=== PATIENT | female | born 1990 | race Asian ===

== ENCOUNTER 2017-06-03 23:00 | Emergency (ER) | payer OTHER ==
[~2017-06-03] VITALS: Ht 160 cm; Wt 64.9 kg
[~2017-06-03 23:00] MED LIST: AMOX500C PO; HYDR15SO4 PO
[2017-06-04 00:27] LABS: BILIRUBIN,URINE NEGATIVE (NEG); GLUCOSE,URINE NEGATIVE (NEG); NITRITE,URINE NEGATIVE (NEG); PROTEIN,URINE NEGATIVE (NEG-TRACE); UROBILINOGEN,URINE 0.2 mg/dL (0.2 mg/dL)
[2017-06-04] MEDS ORDERED: IV NORMAL SALINE 1000ML BAG 1,000 ML IV ONE (00:30)
[2017-06-04] MEDS ORDERED: ONDANSETRON ODT 4 MG TAB.RAPDIS. PO ONE (00:30)
[2017-06-04 00:37] LABS: BACTERIA,URINE MOD /HPF (0-FEW); RBC,URINE OCC /HPF (0-2); SQUAMOUS EPITHELIAL CELL,UR MOD /LPF
[2017-06-04 00:38] LABS: POTASSIUM ISTAT 3.4 mmol/L (3.5-5.0)
[2017-06-04 01:30] VITALS: BP 107/56
[2017-06-04] MEDS ORDERED: ONDA4TAB10 SL (01:39)
--- NOTE | 2017-06-04 01:40 | PHYS DOC ---
Past Medical History Past Medical History: No Pertinent History Past Surgical History: Alcohol Use: None Drug Use: None Adult General Chief Complaint Chief Complaint: VOMITING IN HPI HPI 6-year-old female who states she is 6 weeks by dates. Now presents the emergency department because she is vomiting. Patient states that during previous she had lots of vomiting and was diagnosed with hyperemesis gravidarum. She has no pelvic pain abdominal pain vaginal discharge or bleeding. No care yet. Patient reports nausea daily but she has been will keep down some fluids. She has no other complaints. Specifically no chest pain or shortness of breath and no pleuritic pain Review of Systems Review of Systems Constitutional: Denies fever or chills [] Eyes: Denies change in visual acuity, redness, or eye pain [] HENT: Denies nasal congestion or sore throat [] Respiratory: Denies cough or shortness of breath [] Cardiovascular: No additional information not addressed in HPI [] GI: Denies abdominal pain, nausea, vomiting, bloody stools or diarrhea [] : Denies dysuria or hematuria [] Musculoskeletal: Denies back pain or joint pain [] Integument: Denies rash or skin lesions [] Neurologic: Denies headache, focal weakness or sensory changes [] Endocrine: Denies polyuria or polydipsia [] Current Medications Current Medications Current Medications Medications (Trade) Dose Ordered Sig/Princess Start Time Stop Time Status Last Admin Dose Admin Ondansetron HCl (Zofran Odt) 4 mg 1X ONCE 06/04/17 00:30 06/04/17 00:31 DC 06/04/17 00:34 4 MG Sodium Chloride 1,000 ml @ 999 mls/hr 1X ONCE 06/04/17 00:30 06/04/17 01:30 DC 06/04/17 00:34 999 MLS/HR Allergies Allergies Allergies Coded Allergies Type Severity Reaction Last Updated Verified No Known Drug Allergies 07/13/16 No Physical Exam Physical Exam Constitutional: Well developed, well nourished, no acute distress, non-toxic appearance. [] HENT: Normocephalic, atraumatic, bilateral external ears normal, oropharynx moist, no oral exudates, nose normal. [] Eyes: PERRLA, EOMI, conjunctiva normal, no discharge. [] Neck: Normal range of motion, no tenderness, supple, no stridor. [] Cardiovascular:Heart rate regular rhythm, no murmur [] Lungs & Thorax: Bilateral breath sounds clear to auscultation [] Abdomen: Bowel sounds normal, soft, no tenderness, no masses, no pulsatile masses. [] Skin: Warm, dry, no erythema, no rash. [] Back: No tenderness, no CVA tenderness. [] Extremities: No tenderness, no cyanosis, no clubbing, ROM intact, no edema. [] Neurologic: Alert and oriented X 3, normal motor function, normal sensory function, no focal deficits noted. [] Psychologic: Affect normal, judgement normal, mood normal. [] Current Patient Data Vital Signs Vital Signs Date Time Temp Pulse Resp B/P (MAP) Pulse Ox O2 Delivery O2 Flow Rate FiO2 06/03/17 23:11 98.0 90 16 112/56 (74) 100 Room Air 98.0 Lab Values Laboratory Tests Test 06/03/17 22:19 06/04/17 00:01 06/04/17 00:32 POC Urine HCG, Qualitative Hcg positive (Negative) Urine Collection Type Unknown Urine Color Yellow Urine Clarity Clear Urine pH 7.0 Urine Specific [place] 1.020 Urine Protein Negative mg/dL (NEG-TRACE) Urine Glucose (UA) Negative mg/dL (NEG) Urine Ketones (Stick) 15 mg/dL (NEG) Urine Blood Small (NEG) Urine Nitrite Negative (NEG) Urine Bilirubin Negative (NEG) Urine Urobilinogen Dipstick 0.2 mg/dL (0.2 mg/dL) Urine Leukocyte Esterase Negative (NEG) Urine RBC Occ /HPF (0-2) Urine WBC 1-4 /HPF (0-4) Urine Squamous Epithelial Cells Mod /LPF Urine Bacteria Mod /HPF (0-FEW) Urine Mucus Slight /LPF POC Hemoglobin 12.9 g/dL (12-15) POC Hematocrit 38 % (36-40) POC Sodium 137 mmol/L (135-145) POC Potassium 3.4 mmol/L (3.5-5.0) L POC Chloride 102 mmol/L (98-110) POC Total CO2 23 mmol/L (23-32) Anion Gap 16 mmol/L (6-14) H POC Blood Urea Nitrogen 4 mg/dL (8-26) L POC Creatinine 0.4 mg/dL (0.5-1.4) L Glucose Level 93 mg/dL (70-99) POC Ionized Calcium (Katina) 1.21 mmol/L (1.13-1.32) Laboratory Tests 06/04/17 00:32 EKG EKG [] Radiology/Procedures Radiology/Procedures [] Course & Med Decision Making Course & Med Decision Making Pertinent Labs and Imaging studies reviewed. (See chart for details) And symptoms consistent with hyperemesis gravidarum without acidosis or laboratory abnormality. Patient stable on reevaluation after hydration. She has no active nausea or vomiting. Zofran prescribed and no further workup or treatment indicated at this time. 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 Strict return precautions given [] Dragon Disclaimer Dragon Disclaimer This electronic medical record was generated, in whole or in part, using a voice recognition dictation system. Departure Departure Impression: Primary Impression: Hyperemesis gravidarum Disposition: HOME, SELF-CARE Condition: IMPROVED Referrals: SLY ROD MD (PCP) Patient Instructions: Hyperemesis Gravidarum Additional Instructions: You have stated that you're in early approximately 6 weeks gestation. Based on the nausea and vomiting that you been experiencing it sounds like you' re suffering from hyperemesis gravidarum. Your laboratory results today did not suggest any dangerous dehydration. You been hydrated with IV fluids and given antirheumatic medication. We've given you a prescription for Zofran which is commonly used in and felt to be safe. Use his medication under your tongue every 4 hours if needed rest and drink plenty of fluids. Follow up for care with your [employer] DES[employer] doctor. Take [id number] vitamins and be sure not to drink or smoke. See her primary care doctor tomorrow as well and return immediately for new severe worsening symptoms Scripts Ondansetron (ZOFRAN ODT) 4 Mg Tab.rapdis 1 TAB SL Q4HRS Y for VOMITING, #15 TAB Prov: ANDREA SCRUGGS MD 06/04/17 ANDREA SCRUGGS MD Jun 04, 2017 01:40
== END 2017-06-04 01:48 | disposition home or self-care (01) ==
LOC: ER 23:00
DX: O21.0 Mild hyperemesis gravidarum (principal); Z3A.01 Less than 8 weeks gestation of pregnancy
CPT/HCPCS: 80047; 81001; 81025; 96360; 99284; J7030; Q0162

== ENCOUNTER 2018-05-03 13:06 | Emergency (ER) | payer OTHER ==
[2018-05-03 13:35] LABS: URINE HCG POC HCG NEGATIVE (Negative)
[2018-05-03 13:47] LABS: BILIRUBIN,URINE NEGATIVE (NEG); CLARITY,URINE CLOUDY; COLOR,URINE YELLOW; GLUCOSE,URINE NEGATIVE (NEG); NITRITE,URINE NEGATIVE (NEG); PH,URINE 6.5; PROTEIN,URINE 100 mg/dL (NEG-TRACE); UROBILINOGEN,URINE 0.2 mg/dL (0.2 mg/dL)
[2018-05-03 13:59] LABS: BACTERIA,URINE MANY /HPF (0-FEW); SQUAMOUS EPITHELIAL CELL,UR FEW /LPF; WBC,URINE >40 /HPF (0-4)
[2018-05-03] MEDS: ACETAMINOPHEN 500 MG TABLET PO (14:01)
[2018-05-03] MEDS: IV NORMAL SALINE 1000ML BAG 1,000 ML IV (14:02)
[2018-05-03 14:17] LABS: BASO % 0 % (0-3); EOS % 0 % (0-3); HEMATOCRIT 33.2 % (36.0-47.0); HEMOGLOBIN 11.2 g/dL (12.0-15.5); LYMPH # 0.8 x10^3/uL (1.0-4.8); LYMPH % 8 % (24-48); MEAN CORPUSCULAR HEMOGLOBIN 28 pg (25-35); MEAN CORPUSCULAR HGB CONC 34 g/dL (31-37); MEAN CORPUSCULAR VOLUME 83 fL (79-100); MONO # 0.5 x10^3/uL (0.0-1.1); MONO % 5 % (0-9); NEUT % 87 % (31-73); PLATELET COUNT 237 x10^3/uL (140-400); RED BLOOD COUNT 4.02 x10^6/uL (3.50-5.40); RED CELL DISTRIBUTION WIDTH 15.3 % (11.5-14.5); WHITE BLOOD COUNT 10.3 x10^3/uL (4.0-11.0)
[2018-05-03 14:22] LABS: ADD MAN DIFF? YES
[2018-05-03 14:28] LABS: ANION GAP 11 (6-14); BLOOD UREA NITROGEN 10 mg/dL (7-20); BUN/CREATININE RATIO 14 (6-20); CALCIUM 9.1 mg/dL (8.5-10.1); CARBON DIOXIDE 23 mmol/L (21-32); CHLORIDE 101 mmol/L (98-107); CREATININE 0.7 mg/dL (0.6-1.0); GFR 99.6; GLUCOSE 136 mg/dL (70-99); POTASSIUM 3.7 mmol/L (3.5-5.1); SODIUM 135 mmol/L (136-145)
[2018-05-03 14:34] LABS: ALBUMIN 3.5 g/dL (3.4-5.0); ALBUMIN/GLOBULIN RATIO 0.7 (1.0-1.7); ALK PHOS 108 U/L (46-116); ALT (SGPT) 42 U/L (14-59); AST (SGOT) 25 U/L (15-37); TOTAL BILIRUBIN 0.5 mg/dL (0.2-1.0); TOTAL PROTEIN 8.2 g/dL (6.4-8.2)
[2018-05-03 14:36] LABS: LACTIC ACID 2.1 mmol/L (0.4-2.0)
[2018-05-03 14:42] LABS: % BANDS 3 % (0-9); % LYMPHS 8 % (24-48); % MONOS 5 % (0-10); % SEGS 84 % (35-66)
[2018-05-03 14:44] LABS: PLT ESTIMATE ADEQUATE (ADEQUATE); TOXIC GRANULATION SLIGHT
[2018-05-03] MEDS ORDERED: CONTRAST GIVEN. MC (15:00)
[2018-05-03] MEDS: IOHEXOL 300 MG/ML 100ML VIAL. IV (15:04)
[2018-05-03] MEDS ORDERED: cefTRIAXone SODIUM 2 GM in IV DEXTROSE 5% 100ML 100 ML IV (16:56)
[2018-05-03] MEDS: cefTRIAXone IV Push 2 GM VIAL. IVP (17:11)
[2018-05-04 08:14] LABS: NEGATIVE OBC STREP NEG; POSITIVE OBC STREP POS
== END 2018-05-03 17:57 | disposition home or self-care (01) ==
LOC: ER 13:06
DX: N12 Tubulo-interstitial nephritis, not specified as acute or chronic (principal); R00.0 Tachycardia, unspecified; Z98.890 Other specified postprocedural states
CPT/HCPCS: 36415; 71045; 74177; 80053; 81001; 81025; 83605; 85007; 85025; 87040; 87070; 87086; 87186; 87205; 87880; 96374; 99285-25; J0696; J7030; Q9967

== ENCOUNTER 2018-10-09 15:04 | Emergency (ER) | payer OTHER ==
[~2018-10-09] VITALS: Ht 157.5 cm; Wt 72.6 kg
[~2018-10-09 15:04] MED LIST changes: -HYDR15SO4 PO; +HYDR15SO6 PO; +ONDA4TAB10 SL; +ONDA4TAB7 PO; +PHEN100T82 PO; +SULF1TAB24 PO
[2018-10-09] MEDS ORDERED: METH4TAB2 PO (15:52)
--- NOTE | 2018-10-09 15:53 | PHYS DOC ---
Past Medical History Past Medical History: No Pertinent History Past Surgical History: Alcohol Use: None Drug Use: None Adult General Chief Complaint Chief Complaint: SORE THROAT HPI HPI Patient is a 28 year old female who presents with cough with yellow mucus production, sore throat, runny nose for last day. She is hoarse. Patient denies fever or body aches or weaknesses. She took Tylenol and rates her pain a 5 out of 10. Patient has no past medical history does not smoke. She states no medications daily she is not allergic to any medications. Review of Systems Review of Systems Constitutional: Denies fever or chills [] Eyes: Denies change in visual acuity, redness, or eye pain [] HENT: nasal congestion or sore throat [] Respiratory: cough or denies shortness of breath [] Cardiovascular: No additional information not addressed in HPI [] GI: Denies abdominal pain, nausea, vomiting, bloody stools or diarrhea [] : Denies dysuria or hematuria [] Musculoskeletal: Denies back pain or joint pain [] Integument: Denies rash or skin lesions [] Neurologic: Denies headache, focal weakness or sensory changes [] All other systems were reviewed and found to be within normal limits, except as documented in this note. Allergies Allergies Allergies Coded Allergies Type Severity Reaction Last Updated Verified No Known Drug Allergies 07/13/16 No Physical Exam Physical Exam Constitutional: Well developed, well nourished, no acute distress, non-toxic appearance. [] HENT: Normocephalic, atraumatic, bilateral external ears normal, oropharynx moist, no oral exudates, nose normal. Throat reddened, Hoarse voice [] Eyes: PERRLA, EOMI, conjunctiva normal, no discharge. [] Neck: Normal range of motion, no tenderness, supple, no stridor. [] Cardiovascular:Heart rate regular rhythm, no murmur [] Lungs & Thorax: Bilateral breath sounds clear to auscultation [] Abdomen: Bowel sounds normal, soft, no tenderness, no masses, no pulsatile masses. [] Skin: Warm, dry, no erythema, no rash. [] Back: No tenderness, no CVA tenderness. [] Extremities: No tenderness, no cyanosis, no clubbing, ROM intact, no edema. [] Neurologic: Alert and oriented X 3, normal motor function, normal sensory function, no focal deficits noted. [] Psychologic: Affect normal, judgement normal, mood normal. [] Current Patient Data Vital Signs Vital Signs Date Time Temp Pulse Resp B/P (MAP) Pulse Ox O2 Delivery O2 Flow Rate FiO2 10/09/18 16:40 98.8 91 16 125/78 (94) 97 Room Air 98.8 EKG EKG [] Radiology/Procedures Radiology/Procedures [] Course & Med Decision Making Course & Med Decision Making Patient is a 28 year old female who presents with cough with yellow mucus production, sore throat, runny nose for last day. She is hoarse. Patient denies fever or body aches or weaknesses. She took Tylenol and rates her pain a 5 out of 10. Patient has no past medical history does not smoke. She states no medications daily she is not allergic to any medications. Alert and oriented. Skin pink warm and dry. Because membranes are moist. Throat is reddened but not swollen and there are no exudates. Bilateral lungs are clear to auscultation in all lobes. Bilateral ear tympanic is pearly white. Patient afebrile. She denies any body aches or body generalized weaknesses. Ambulatory with a steady gait. Strep is negative. Patient is diagnosed with likely bronchitis. She is given a prescription for Medrol Dosepak and told to follow up with her primary care provider. Patient to continue taking ibuprofen or Tylenol at home patient can also take [id number] cold cold and flu medication. Dragon Disclaimer Dragon Disclaimer This electronic medical record was generated, in whole or in part, using a voice recognition dictation system. Departure Departure Impression: Primary Impression: Viral upper respiratory illness Disposition: HOME, SELF-CARE Condition: STABLE Referrals: SLY ROD MD (PCP) Patient Instructions: Cough, Adult, Sore Throat, Upper Respiratory Infection, Adult Additional Instructions: Call your primary care for follow up if your are getting worse in the next 4 days. Continue taking over the counter cold and flu medications. Drink plenty of fluids. Take Ibuprofen or tylenol. Scripts Methylprednisolone (MEDROL) 4 Mg Tab.ds.pk 1 PKG PO UD, #1 PKG Prov: ABHI PERALTA DIAGNOSTIC TECHNOLOGIST 10/09/18 ABHI PERALTA DIAGNOSTIC TECHNOLOGIST Oct 09, 2018 15:53
[2018-10-09 16:40] VITALS: BP 125/78
== END 2018-10-09 17:31 | disposition home or self-care (01) ==
LOC: ER 15:04
DX: J06.9 Acute upper respiratory infection, unspecified (principal); B97.89 Other viral agents as the cause of diseases classified elsewhere
CPT/HCPCS: 87070; 87880; 99283

== ENCOUNTER 2019-07-03 06:39 | Emergency (ER) | payer OTHER ==
[~2019-07-03] VITALS: Ht 157.5 cm; Wt 81.6 kg
[~2019-07-03 06:39] MED LIST changes: +METH4TAB2 PO
[2019-07-03] MEDS ORDERED: IV NORMAL SALINE 1000ML BAG 1,000 ML IV SCH (07:21)
--- NOTE | 2019-07-03 07:25 | PHYS DOC ---
Past Medical History Past Medical History: No Pertinent History Past Surgical History: Alcohol Use: None Drug Use: None Adult General Chief Complaint Chief Complaint: ABDOMINAL PAIN HPI HPI Patient is a 28-year-old female who presents with complaint of right lower quadrant abdominal pain that started yesterday morning. Patient states that pain has worsened since onset and currently she rates the pain at a 9 out of 10. She denies any nausea or vomiting. indicates that she has been eating fairly normally with her last meal last night at about 6 PM. She did have a cup of water to drink this morning. Patient states that pain is worsened with movement and with palpation. There has been no fever.[] Review of Systems Review of Systems Constitutional: Denies fever or chills [] Respiratory: Denies cough or shortness of breath [] Cardiovascular: No additional information not addressed in HPI [] GI: Positive right lower quadrant abdominal pain without vomiting or diarrhea [] : Denies dysuria or hematuria [] Musculoskeletal: Denies back pain or joint pain [] Neurologic: Denies headache, focal weakness or sensory changes [] All other systems were reviewed and found to be within normal limits, except as documented in this note. Current Medications Current Medications Current Medications Medications (Trade) Dose Ordered Sig/Princess Start Time Stop Time Status Last Admin Dose Admin Fentanyl Citrate (Fentanyl 2ml Vial) 25 mcg PRN Q15MIN PRN 07/03/19 07:30 07/04/19 07:29 07/03/19 07:50 25 MCG Info (CONTRAST GIVEN -- Rx MONITORING) 1 each PRN DAILY PRN 07/03/19 08:45 07/05/19 08:44 Iohexol (Omnipaque 300 Mg/ml) 75 ml 1X ONCE 07/03/19 08:30 07/03/19 08:31 DC 07/03/19 08:37 75 ML Morphine Sulfate (Morphine Sulfate) 4 mg 1X ONCE 07/03/19 09:30 07/03/19 09:31 DC 07/03/19 09:45 4 MG Ondansetron HCl (Zofran) 4 mg 1X ONCE 07/03/19 07:30 07/03/19 07:31 DC 07/03/19 07:50 4 MG Sodium Chloride 1,000 ml @ 1,000 mls/hr Q1H 07/03/19 07:21 07/03/19 08:20 DC 07/03/19 07:50 1,000 MLS/HR Allergies Allergies Allergies Coded Allergies Type Severity Reaction Last Updated Verified No Known Drug Allergies 07/13/16 No Physical Exam Physical Exam Constitutional: Well developed, well nourished, no acute distress, non-toxic appearance. [] HENT: Normocephalic, atraumatic, bilateral external ears normal, oropharynx moist, no oral exudates, nose normal. [] Eyes: PERRLA, EOMI, conjunctiva normal, no discharge. [] Neck: Normal range of motion, no tenderness, supple, no stridor. [] Cardiovascular:Heart rate regular rhythm, no murmur [] Lungs & Thorax: Bilateral breath sounds clear to auscultation [] Abdomen: Bowel sounds diminished, soft, with moderate right lower quadrant tenderness. Positive rebound tenderness. [] Skin: Warm, dry, no erythema, no rash. [] Extremities: No tenderness, no cyanosis, no clubbing, ROM intact, no edema. [] Neurologic: Alert and oriented X 3, no focal deficits noted. [] Current Patient Data Vital Signs Vital Signs Date Time Temp Pulse Resp B/P (MAP) Pulse Ox O2 Delivery O2 Flow Rate FiO2 07/03/19 09:45 18 07/03/19 07:30 97.4 55 104/65 (78) 98 Room Air 97.4 Lab Values Laboratory Tests Test 07/03/19 07:20 07/03/19 07:21 07/03/19 07:50 POC Urine HCG, Qualitative Hcg negative (Negative) White Blood Count 7.9 x10^3/uL (4.0-11.0) Red Blood Count 4.24 x10^6/uL (3.50-5.40) Hemoglobin 12.5 g/dL (12.0-15.5) Hematocrit 37.6 % (36.0-47.0) Mean Corpuscular Volume 89 fL (79-100) Mean Corpuscular Hemoglobin 29 pg (25-35) Mean Corpuscular Hemoglobin Concent 33 g/dL (31-37) Red Cell Distribution Width 13.7 % (11.5-14.5) Platelet Count 251 x10^3/uL (140-400) Neutrophils (%) (Auto) 60 % (31-73) Lymphocytes (%) (Auto) 28 % (24-48) Monocytes (%) (Auto) 11 % (0-9) H Eosinophils (%) (Auto) 1 % (0-3) Basophils (%) (Auto) 1 % (0-3) Neutrophils # (Auto) 4.7 x10^3/uL (1.8-7.7) Lymphocytes # (Auto) 2.2 x10^3/uL (1.0-4.8) Monocytes # (Auto) 0.8 x10^3/uL (0.0-1.1) Eosinophils # (Auto) 0.1 x10^3/uL (0.0-0.7) Basophils # (Auto) 0.1 x10^3/uL (0.0-0.2) Sodium Level 137 mmol/L (136-145) Potassium Level 3.8 mmol/L (3.5-5.1) Chloride Level 102 mmol/L (98-107) Carbon Dioxide Level 29 mmol/L (21-32) Anion Gap 6 (6-14) Blood Urea Nitrogen 8 mg/dL (7-20) Creatinine 0.6 mg/dL (0.6-1.0) Estimated GFR (Cockcroft-Gault) 118.2 BUN/Creatinine Ratio 13 (6-20) Glucose Level 127 mg/dL (70-99) H Calcium Level 9.5 mg/dL (8.5-10.1) Total Bilirubin 0.5 mg/dL (0.2-1.0) Aspartate Amino Transferase (AST) 22 U/L (15-37) Alanine Aminotransferase (ALT) 23 U/L (14-59) Alkaline Phosphatase 113 U/L (46-116) Total Protein 7.9 g/dL (6.4-8.2) Albumin 3.6 g/dL (3.4-5.0) Albumin/Globulin Ratio 0.8 (1.0-1.7) L Lipase 97 U/L (73-393) Urine Collection Type Unknown Urine Color Yellow Urine Clarity Clear Urine pH 6.5 Urine Specific [place] <=1.005 Urine Protein Negative mg/dL (NEG-TRACE) Urine Glucose (UA) Negative mg/dL (NEG) Urine Ketones (Stick) Negative mg/dL (NEG) Urine Blood Small (NEG) Urine Nitrite Negative (NEG) Urine Bilirubin Negative (NEG) Urine Urobilinogen Dipstick 0.2 mg/dL (0.2 mg/dL) Urine Leukocyte Esterase Negative (NEG) Urine RBC 0 /HPF (0-2) Urine WBC 0 /HPF (0-4) Urine Squamous Epithelial Cells Many /LPF Urine Bacteria 0 /HPF (0-FEW) Laboratory Tests 07/03/19 07:21 Laboratory Tests 07/03/19 07:21 EKG EKG [] Radiology/Procedures Radiology/Procedures [] Impressions: PROCEDURE: CT ABD PELV W/ IV CONTRST ONLY Examination: CT ABD PELV W/ IV CONTRST ONLY History: Right lower quadrant pain Comparison/Correlation: None Findings: Axial images of the abdomen and pelvis were obtained following IV contrast. Visualized lung bases are clear. Liver, spleen, pancreas, gallbladder fossa, and adrenal glands are normal. Kidneys are normal. Appendix is normal. A few radiopaque densities within the colon are noted. Correlate for possibility of undigested medication pills, barium ingestion, calcific densities or other ingested radiopaque densities. Subtle inflammatory stranding is noted about the proximal ascending colon. Terminal ileum is grossly unremarkable. No bowel obstruction or extraluminal gas. Possible minimal diverticulosis of the sigmoid colon is raised. The uterus is unremarkable. Left adnexal follicle measuring 2 cm diameter is present. No ascites or pelvic free fluid. Dilated left ovarian vein is incidentally seen. Uterus unremarkable. Urinary bladder is unremarkable. Bony structures unremarkable. Impression: Stranding about the cecum and proximal ascending colon. No abscess. Correlate for possibility of diverticulitis or segmental colitis. Appendix is normal. Left adnexal follicle is physiologic in appearance. PQRS Compliance Statement: One or more of the following individualized dose reduction techniques were utilized for this examination: 1. Automated exposure control 2. Adjustment of the mA and/or kV according to patient size 3. Use of iterative reconstruction technique Electronically signed by: Neel Watson MD (07/03/2019 9:06 AM) [facility] Course & Med Decision Making Course & Med Decision Making Pertinent Labs and Imaging studies reviewed. (See chart for details) [] Dragon Disclaimer Dragon Disclaimer This electronic medical record was generated, in whole or in part, using a voice recognition dictation system. Departure Departure Impression: Primary Impression: Colitis Disposition: 01 HOME, SELF-CARE Condition: STABLE Referrals: SLY ROD MD (PCP) Patient Instructions: Colitis Scripts Hydrocodone/Apap 5-325 (NORCO 5-325 TABLET) 1 Each Tablet 1-2 EACH PO PRN Q6HRS PRN for PAIN, #15 as needed for pain Prov: PITA SLAUGHTER Jr. DO 07/03/19 Ondansetron Hcl (ZOFRAN) 4 Mg Tablet 4 MG PO PRN TID PRN for NAUSEA, #15 nausea/vomiting Prov: PITA SLAUGHTER Jr. DO 07/03/19 Metronidazole (FLAGYL) 500 Mg Tablet 500 MG PO TID, #30 TAB Prov: PITA SLAUGHTER Jr. DO 07/03/19 Ciprofloxacin Hcl (CIPROFLOXACIN HCL) 500 Mg Tablet 1 TAB PO BID, #20 TAB Prov: PITA SLAUGHTER Jr. DO 07/03/19 PITA SLAUGHTER Jr. DO Jul 03, 2019 07:24
[2019-07-03] MEDS ORDERED: ONDANSETRON PF 4 MG/2 ML VIAL. IV ONE (07:30)
[2019-07-03] MEDS ORDERED: fentaNYL PF VIAL 100 MCG/2 ML VIAL IV PRN (07:30)
[2019-07-03 07:32] LABS: BASO # 0.1 x10^3/uL (0.0-0.2); BASO % 1 % (0-3); EOS # 0.1 x10^3/uL (0.0-0.7); EOS % 1 % (0-3); HEMATOCRIT 37.6 % (36.0-47.0); HEMOGLOBIN 12.5 g/dL (12.0-15.5); LYMPH # 2.2 x10^3/uL (1.0-4.8); LYMPH % 28 % (24-48); MEAN CORPUSCULAR HEMOGLOBIN 29 pg (25-35); MEAN CORPUSCULAR HGB CONC 33 g/dL (31-37); MEAN CORPUSCULAR VOLUME 89 fL (79-100); MONO # 0.8 x10^3/uL (0.0-1.1); MONO % 11 % (0-9); NEUT # 4.7 x10^3/uL (1.8-7.7); NEUT % 60 % (31-73); PLATELET COUNT 251 x10^3/uL (140-400); RED BLOOD COUNT 4.24 x10^6/uL (3.50-5.40); RED CELL DISTRIBUTION WIDTH 13.7 % (11.5-14.5); WHITE BLOOD COUNT 7.9 x10^3/uL (4.0-11.0)
[2019-07-03 07:44] LABS: CALCIUM 9.5 mg/dL (8.5-10.1); CREATININE 0.6 mg/dL (0.6-1.0); GFR 118.2; POTASSIUM 3.8 mmol/L (3.5-5.1)
[2019-07-03 07:58] LABS: ALBUMIN 3.6 g/dL (3.4-5.0); ALBUMIN/GLOBULIN RATIO 0.8 (1.0-1.7); TOTAL BILIRUBIN 0.5 mg/dL (0.2-1.0); TOTAL PROTEIN 7.9 g/dL (6.4-8.2)
[2019-07-03 08:03] LABS: BILIRUBIN,URINE NEGATIVE (NEG); CLARITY,URINE CLEAR; COLOR,URINE YELLOW; NITRITE,URINE NEGATIVE (NEG); PH,URINE 6.5; PROTEIN,URINE NEGATIVE (NEG-TRACE); UROBILINOGEN,URINE 0.2 mg/dL (0.2 mg/dL)
[2019-07-03 08:10] LABS: BACTERIA,URINE 0 /HPF (0-FEW); RBC,URINE 0 /HPF (0-2); SQUAMOUS EPITHELIAL CELL,UR MANY /LPF; WBC,URINE 0 /HPF (0-4)
[2019-07-03] MEDS ORDERED: IOHEXOL 300 MG/ML 100ML VIAL. IV ONE (08:30)
[2019-07-03] MEDS ORDERED: CONTRAST GIVEN. MC PRN (08:45)
--- NOTE | 2019-07-03 09:09 | RAD ---
Examination: CT ABD PELV W/ IV CONTRST ONLY History: Right lower quadrant pain Comparison/Correlation: None Findings: Axial images of the abdomen and pelvis were obtained following IV contrast. Visualized lung bases are clear. Liver, spleen, pancreas, gallbladder fossa, and adrenal glands are normal. Kidneys are normal. Appendix is normal. A few radiopaque densities within the colon are noted. Correlate for possibility of undigested medication pills, barium ingestion, calcific densities or other ingested radiopaque densities. Subtle inflammatory stranding is noted about the proximal ascending colon. Terminal ileum is grossly unremarkable. No bowel obstruction or extraluminal gas. Possible minimal diverticulosis of the sigmoid colon is raised. The uterus is unremarkable. Left adnexal follicle measuring 2 cm diameter is present. No ascites or pelvic free fluid. Dilated left ovarian vein is incidentally seen. Uterus unremarkable. Urinary bladder is unremarkable. Bony structures unremarkable. Impression: Stranding about the cecum and proximal ascending colon. No abscess. Correlate for possibility of diverticulitis or segmental colitis. Appendix is normal. Left adnexal follicle is physiologic in appearance. PQRS Compliance Statement: One or more of the following individualized dose reduction techniques were utilized for this examination: 1. Automated exposure control 2. Adjustment of the mA and/or kV according to patient size 3. Use of iterative reconstruction technique Electronically signed by: Neel Watson MD (07/03/2019 9:06 AM) [facility]
[2019-07-03] MEDS ORDERED: MORPHINE SULFATE 4 MG/ML VIAL. IV ONE (09:30)
[2019-07-03 10:00] VITALS: BP 97/59
[2019-07-03] MEDS ORDERED: HYDR-3164 PO (10:23)
[2019-07-03] MEDS ORDERED: METR500T PO (10:23)
[2019-07-03] MEDS ORDERED: ONDA4TAB7 PO (10:23)
[2019-07-03] MEDS ORDERED: CIPR500T PO (10:23)
== END 2019-07-03 10:46 | disposition home or self-care (01) ==
LOC: ER 06:39
DX: K52.9 Noninfective gastroenteritis and colitis, unspecified (principal)
CPT/HCPCS: 36415; 74177; 80053; 81001; 81025; 83690; 85025; 96361; 96374; 96375; 99285; J2270; J2405; J3010; J7030; Q9967